=== PATIENT | male | born 1955 | race Caucasian/White ===

== ENCOUNTER 2017-07-28 22:55 | Observation (INO) | payer OTHER ==
[~2017-07-28] VITALS: Ht 170.2 cm; Wt 70.0 kg
[~2017-07-28 22:55] MED LIST: ASPI81 PO; CARV3.125 PO; PRAV10 PO; TEMA30CA PO; TICA90 PO
[2017-07-28 23:01] VITALS: BP 142/80; PULSE 88; RESP 16; TEMP 97.4; O2SAT 98
[2017-07-28] MEDS ORDERED: TEMA30CA PO (23:11)
[2017-07-28] MEDS ORDERED: NUGENIX PO (23:11)
[2017-07-28] MEDS ORDERED: PRAV40TA2 PO (23:11)
[2017-07-28] MEDS ORDERED: CLOP75TA PO (23:11)
[2017-07-28] MEDS ORDERED: AMBI10TA PO (23:11)
[2017-07-28] MEDS ORDERED: OMEG100046 PO (23:11)
[2017-07-28] MEDS ORDERED: ASPI1CHW4 CHEW (23:11)
[2017-07-28] MEDS ORDERED: CARV3.12 PO (23:11)
--- NOTE | 2017-07-28 23:53 | PD ---
HPI Chief Complaint: Dizziness Time Seen by Provider: 23:34 Travel History International Travel<30 days: No Contact w/Intl Traveler<30days: No Traveled to known affect area: No History of Present Illness HPI 62yo M with PMH of CAD s/p cardiac stent, HLD presents to the ED with c/o episode of dizziness, slurred speech, difficulty with his right arm and double vision at 10:30pm that lasted 10-15 minutes. As per his daughter, pt was sitting down watching TV when he said he saw 2 people on the TV but there was only 1 person. Daughter said his speech was slurred and not normal. He was eating gelato with his right hand and was having difficulty with the scooping motion. Pt said he no longer has double vision or feel dizzy. Pt cannot tell me if he had double vision with one eye closed since he did not try it and that symptom has resolved. Denies any history of stroke before. Denies any fever, chest pain, sob, n/v, abdominal pain, focal weakness or numbness. PFSH Past Medical History Asthma: No Autoimmune Disease: No Blood Disorders: No Anxiety: No Depression: No Heart Rhythm Problems: No Cancer: No Cardiovascular Problems: Yes (high cholesterol/triglycerides) High Cholesterol: Yes Chest Pain: Yes Congestive Heart Failure: No COPD: No Cerebrovascular Accident: No Diabetes: No Diminished Hearing: No Endocrine: No Genitourinary: No Headaches: Yes Hypertension: No Immune Disorder: No Musculoskeletal: No Neurologic: Yes (migraines) Psychiatric: No Reproductive: No Respiratory: Yes (BRONCHITIS) Migraines: Yes Myocardial Infarction: No Seizures: No Sleep Apnea: No Thyroid Disease: No Triglycerides - High: Yes Past Surgical History Abdominal Surgery: No AICD: No Appendectomy: Yes Arteriovenous Shunt: No Body Medical Devices: STENT Cardiac Surgery: Yes (STENT - 2007) Coronary Stent: Yes (X 1 IN 2007) Ear Surgery: No Endocrine Surgery: No Eye Surgery: No Genitourinary Surgery: Yes (GALLBLADDER) Gynecologic Surgery: No Insulin Pump: No Joint Replacement: No Oral Surgery: No Pacemaker: No Thoracic Surgery: No Other Surgery: Yes (appendectomy) Social History Alcohol Use: Yes (ON RARE OCCASION) Tobacco Use: No Substance Use: No Allergies-Medications (Allergen,Severity, Reaction): Coded Allergies: No Known Allergies (Verified Adverse Reaction, Unknown, 07/28/17) Reported Meds & Prescriptions Reported Meds & Active Scripts Active Reported Clopidogrel (Clopidogrel Bisulfate) 75 Mg Tab 75 Mg PO DAILY [Nugenix] 3 Cap PO DAILY Fish Oil 1,000 mg Softgel ([place]-3/Dha/Epa/Fish Oil) 1,000 Mg (120 Mg-180 Mg) Capsule 1 Cap PO DAILY Pravastatin 40 Mg Tab 40 Mg PO HS Ambien (Zolpidem Tartrate) 10 Mg Tab 10 Mg PO HS PRN Carvedilol 3.125 Mg Tab 3.125 Mg PO BID Temazepam 30 Mg Cap 30 Mg PO HS PRN Aspirin 81 Low Dose (Aspirin) 81 Mg Chew 81 Mg CHEW DAILY Review of Systems Except as stated in HPI: all other systems reviewed are Neg Physical Exam Narrative GENERAL: 62yo M not in distress. SKIN: Focused skin assessment warm/dry. HEAD: Atraumatic. Normocephalic. EYES: Pupils equal and round at 4mm bilaterally. EOMI. No scleral icterus. No injection or drainage. ENT: No nasal bleeding or discharge. Mucous membranes pink and moist. NECK: Trachea midline. No JVD. CARDIOVASCULAR: Regular rate and rhythm. No murmur appreciated. RESPIRATORY: No accessory muscle use. Clear to auscultation. Breath sounds equal bilaterally. GASTROINTESTINAL: Abdomen soft, non-tender, nondistended. MUSCULOSKELETAL: No obvious deformities. No clubbing. No cyanosis. No edema. NEUROLOGICAL: Awake and alert. No obvious cranial nerve deficits. Motor grossly within normal limits in all extremities. Sensation equal in all extremities. Normal speech. NIH stroke 0. PSYCHIATRIC: Appropriate mood and affect; insight and judgment normal. Data Data Last Documented VS Vital Signs Date Time Temp Pulse Resp B/P (MAP) Pulse Ox O2 Delivery O2 Flow Rate FiO2 07/28/17 23:47 Room Air 07/28/17 23:01 97.4 88 16 142/80 (100) 98 Orders Orders Electrocardiogram (07/28/17 23:48) Basic Metabolic Panel (Bmp) (07/28/17 23:48) Complete Blood Count With Diff (07/28/17 23:48) Magnesium (Mg) (07/28/17 23:48) Troponin I (07/28/17 23:48) Blood Glucose (07/28/17 23:48) Orthostatic Vital Signs (07/28/17 23:48) Urinalysis - C+S If Indicated (07/28/17 23:53) Ct Brain W/O Iv Contrast(Rout) (07/29/17 ) Prothrombin Time / Inr (Pt) (07/29/17 00:09) Act Partial Throm Time (Ptt) (07/29/17 00:09) Labs Laboratory Tests Test 07/29/17 00:18 White Blood Count 7.9 TH/MM3 Red Blood Count 5.66 MIL/MM3 Hemoglobin 16.8 GM/DL Hematocrit 49.7 % Mean Corpuscular Volume 87.9 FL Mean Corpuscular Hemoglobin 29.7 PG Mean Corpuscular Hemoglobin Concent 33.8 % Red Cell Distribution Width 13.2 % Platelet Count 248 TH/MM3 Mean Platelet Volume 8.1 FL Neutrophils (%) (Auto) 60.1 % Lymphocytes (%) (Auto) 25.2 % Monocytes (%) (Auto) 10.1 % Eosinophils (%) (Auto) 3.7 % Basophils (%) (Auto) 0.9 % Neutrophils # (Auto) 4.7 TH/MM3 Lymphocytes # (Auto) 2.0 TH/MM3 Monocytes # (Auto) 0.8 TH/MM3 Eosinophils # (Auto) 0.3 TH/MM3 Basophils # (Auto) 0.1 TH/MM3 CBC Comment DIFF FINAL Differential Comment Prothrombin Time 10.1 SEC Prothromb Time International Ratio 1.0 RATIO Activated Partial Thromboplast Time 25.4 SEC Urine Color YELLOW Urine Turbidity CLEAR Urine pH 6.0 Urine Specific [place] GREATER/EQUAL 1.030 Urine Protein NEG mg/dL Urine Glucose (UA) NEG mg/dL Urine Ketones NEG mg/dL Urine Occult Blood NEG Urine Nitrite NEG Urine Bilirubin NEG Urine Urobilinogen 0.2 MG/DL Urine Leukocyte Esterase NEG Urine RBC 0-2 /hpf Urine WBC 0-2 /hpf Urine Squamous Epithelial Cells 0-5 /hpf Urine Bacteria NONE /hpf Microscopic Urinalysis Comment CULT NOT INDICATED Blood Urea Nitrogen 20 MG/DL Creatinine 1.00 MG/DL Random Glucose 80 MG/DL Calcium Level 9.0 MG/DL Magnesium Level 2.6 MG/DL Sodium Level 143 MEQ/L Potassium Level 3.8 MEQ/L Chloride Level 109 MEQ/L Carbon Dioxide Level 29.7 MEQ/L Anion Gap 4 MEQ/L Estimat Glomerular Filtration Rate 76 ML/MIN Troponin I LESS THAN 0.02 NG/ML MDM Medical Decision Making Medical Screen Exam Complete: Yes Emergency Medical Condition: Yes Interpretation(s) EKG: Sinus bradycardia at 57bpm. Normal axis. No ST segment elevation or depression. Differential Diagnosis TIA vs. Arrhythmia vs. dehydration vs. hypoglycemia vs. vertigo Narrative Course 62yo M with CAD here with episode of slurred speech, double vision and ? weakness in right arm that has resolved. Pt's speech is normal as per daughter. NIH stroke 0 here. Labs reviewed, no leukocytosis. H/H normal. BUN mildly elevated at 20. Troponin negative. UA negative. CT brain negative. Pt already took aspirin today. Pt had symptoms concerning for TIA so will admit for observation for TIA work up. Discussed with Dr. Srinivasan's PA and accepted to her service. Diagnosis Primary Impression: TIA (transient ischemic attack) Qualified Codes: G45.9 - Transient cerebral ischemic attack, unspecified Admitting Information Admitting Physician Requests: Observation Anitha Shepard DO Jul 28, 2017 23:53
[2017-07-29] VITALS (8 sets, daily range): BP systolic 126–154; BP diastolic 70–86; PULSE 50–67; RESP 15–19; TEMP 95–97.8; O2SAT 95–97
[2017-07-29 00:31] LABS: BILIRUBIN, URINE NEG (NEG); BLOOD, URINE NEG (NEG); GLUCOSE,URINE NEG (NEG); KETONE, URINE NEG (NEG); NITRITE,URINE NEG (NEG); URINE COLOR YELLOW (YELLW/STRAW); URINE LEUKOCYTE ESTERASE NEG (NEG)
[2017-07-29 00:34] LABS: AUTOMATED NEUTROPHIL # 4.7 TH/MM3 (1.8-7.7); BASOPHIL # 0.1 TH/MM3 (0-0.2); BASOPHIL % 0.9 % (0.0-2.0); EOSINOPHIL # 0.3 TH/MM3 (0-0.4); EOSINOPHIL % 3.7 % (0.0-4.0); HEMATOCRIT 49.7 % (39.0-51.0); HEMOGLOBIN 16.8 GM/DL (13.0-17.0); LYMPH % 25.2 % (9.0-44.0); MEAN CELL VOLUME 87.9 FL (80.0-100.0); MEAN CORPUSCULAR HEMOGLOBIN 29.7 PG (27.0-34.0); MEAN CORPUSCULAR HGB CONC 33.8 % (32.0-36.0); MEAN PLATELET VOLUME 8.1 FL (7.0-11.0); MONO % 10.1 % (0.0-8.0); MONOCYTE # 0.8 TH/MM3 (0-0.9); NEUT % 60.1 % (16.0-70.0); PLATELET COUNT 248 TH/MM3 (150-450); RED BLOOD COUNT 5.66 MIL/MM3 (4.50-5.90); RED CELL DISTRIBUTION WIDTH 13.2 % (11.6-17.2); WHITE BLOOD COUNT 7.9 TH/MM3 (4.0-11.0)
[2017-07-29 00:40] LABS: CHLORIDE 109 MEQ/L (98-107); SODIUM (NA) 143 MEQ/L (136-145)
[2017-07-29 00:42] LABS: RBC, URINE 0-2 /hpf (0-3); SQUAMOUS EPITHELIAL CELL URINE 0-5 /hpf (0-5); WBC, URINE 0-2 /hpf (0-5)
--- NOTE | 2017-07-29 00:42 | RADRPT ---
EXAM DATE/TIME: 07/29/2017 00:16 [facility] COMPARISON: No previous studies available for comparison. INDICATIONS : Dizziness. Double vision. RADIATION DOSE: 51.34 CTDIvol (mGy) MEDICAL HISTORY : Cardiovascular disease. SURGICAL HISTORY : None. ENCOUNTER: Initial ACUITY: 1 day PAIN SCALE: 0/10 LOCATION: cranial TECHNIQUE: Multiple contiguous axial images were obtained of the head. Using automated exposure control and adj ustment of the mA and/or kV according to patient size, radiation dose was kept as low as reasonably a chievable to obtain optimal diagnostic quality images. DICOM format image data is available electro nically for review and comparison. FINDINGS: CEREBRUM: The ventricles are normal for age. No evidence of midline shift, mass lesion, hemorrhage or acute in farction. No extra-axial fluid collections are seen. POSTERIOR FOSSA: The cerebellum and brainstem are intact. The 4th ventricle is midline. The cerebellopontine angle i s unremarkable. EXTRACRANIAL: The visualized portion of the orbits is intact. SKULL: The calvaria is intact. No evidence of skull fracture. CONCLUSION: 1. Negative noncontrast CT brain. Jarrod Frances MD on July 29, 2017 at 0:40 Board Certified Radiologist. This report was verified electronically.
[2017-07-29 00:43] LABS: BICARBONATE 29.7 MEQ/L (21.0-32.0)
[2017-07-29 00:44] LABS: BLOOD UREA NITROGEN 20 MG/DL (7-18); GLUCOSE,RANDOM 80 MG/DL (74-106); MAGNESIUM 2.6 MG/DL (1.5-2.5); PROTHROMBIN TIME - PATIENT 10.1 SEC (9.8-11.6)
[2017-07-29 00:47] LABS: GLOMERULAR FILTRATION RATE 76 ML/MIN (>89)
[2017-07-29 00:52] LABS: TROPONIN I LESS THAN 0.02 NG/ML (0.02-0.05)
[2017-07-29] MEDS ORDERED: SODIUM CHLORIDE 0.9% FLUSH 10 ML FLUSH IV FLUSH PRN (01:15)
[2017-07-29] MEDS: SODIUM CHLOR 0.9% 1000 ML INJ 1,000 ML IV SCH ×2 (01:27→15:25)
[2017-07-29] MEDS: SODIUM CHLORIDE 0.9% FLUSH 10 ML FLUSH IV FLUSH SCH ×2 (08:44→20:50)
--- NOTE | 2017-07-29 08:52 | RADRPT ---
EXAM DATE/TIME: 07/29/2017 08:04 [facility] COMPARISON: No previous studies available for comparison. INDICATIONS : Transient ischemic attack. MEDICAL HISTORY : Myocardial infarction. Hypercholesterolemia. Hypertension. Hyperlipidemia. Chest pain. Bronchitis. Ar thritis. SURGICAL HISTORY : Appendectomy. Cholecystectomy. Cardiac stents. ENCOUNTER: Initial ACUITY: 1 day PAIN SCORE: 0/10 LOCATION: Bilateral neck PEAK SYSTOLIC VELOCITIES (cm/sec): ICA/CCA RATIO: Right: 1.0 Left: 0.8 ICA: Right: 1.9 Left: 83 CCA: Right: 110 Left: 98 ECA: Right: 78 Left: 95 VERTEBRAL: Right: 51 antegrade Left: 43 antegrade Elevated flow velocities and ICA/CCA ratios have been found to correlate with increased degrees of vessel stenosis, calculated as percentage of diameter relative to a normal segment of distal ICA/CCA FINDINGS: RIGHT CAROTID: No significant stenosis is visualized. The waveforms are within normal limits. LEFT CAROTID: No significant stenosis is visualized. The waveforms are within normal limits. VERTEBRAL ARTERIES: Antegrade flow is seen in both vertebral arteries. MISCELLANEOUS: None. CONCLUSION: Normal examination with mild atherosclerotic disease present. Reji Yi MD on July 29, 2017 at 8:49 Board Certified Radiologist. This report was verified electronically.
--- NOTE | 2017-07-29 09:28 | HHI.HP ---
[facility] Service [facility] Primary Care Physician Alma Delia Rosado MD Admission Diagnosis TIA Diagnoses: Chief Complaint: Slurred speech Travel History International Travel<30 Days: No Contact w/Intl Traveler <30 Da: No Traveled to Known Affected Are: No History of Present Illness 62-year-old white male being admitted for strokelike symptoms. Patient was in his usual state of health until sometime yesterday around 10:20 PM when he noticed double vision while watching television. He noticed that there were twice as many figures on TV as well as in person, saw 2 figures of his daughter. Around this time frame his daughter noted that he had slurred speech and the patient noted that he had trouble scooping out ice cream with his right arm. Patient denies recalling any facial droop, nausea vomiting or headaches. He does remember ambulating with help to their vehicle to come to the emergency department. Patient does note that by the time he got to the emergency department his symptoms went away. In the emergency department he had a head CT performed which was negative. EKG was performed which I independently reviewed which shows no acute ST segment changes concerning for ischemia or infarction nor any atrial fibrillation. Blood work is also unremarkable. Review of Systems Except as stated in HPI: all other systems reviewed are Neg Past Family Social History Past Medical History Social history is negative for smoking or drinking. Family history is unremarkable per patient. medical history includes coronary artery disease. Allergies: Coded Allergies: No Known Allergies (Verified Adverse Reaction, Unknown, 07/28/17) Physical Exam Vital Signs Vital Signs Date Time Temp Pulse Resp B/P (MAP) Pulse Ox O2 Delivery O2 Flow Rate FiO2 07/29/17 08:30 67 07/29/17 08:00 97.8 59 19 139/85 (103) 97 07/29/17 04:00 95.0 59 15 149/86 (107) 97 07/29/17 02:43 07/29/17 01:15 60 16 127/76 (93) 95 Room Air 07/28/17 23:47 Room Air 07/28/17 23:01 97.4 88 16 142/80 (100) 98 Physical Exam VS: afebrile GENERAL: Lying in bed, awake, alert, no acute distress SKIN: Warm and dry. EYES: Pupils equal and round. No scleral icterus. No injection or drainage. ENT: No nasal bleeding or discharge. Mucous membranes pink and moist. CARDIOVASCULAR: Regular rate and rhythm. no murmurs RESPIRATORY: No accessory muscle use. Clear to auscultation. Breath sounds equal bilaterally. GASTROINTESTINAL: Abdomen soft, non-tender, nondistended. Extremities: No clubbing, cyanosis, or edema. No obvious deformities. MUSCULOSKELETAL: grossly intact ROM with 5/5 strength in upper and lower extremities proximally; adequate muscle bulk and tone for age and habitus NEUROLOGICAL: Awake and alert. No obvious cranial nerve deficits. No facial droop nor slurred speech noted. Patellar reflexes intact bilaterally. Intact sensation of light touch and pinprick bilaterally over proximal upper extremities and face. Uvula and tongue maintained in midline. Extraocular motions intact. Intact dorsiflexion and plantar flexion. PSYCHIATRIC: Appropriate mood and affect; insight and judgment normal. Laboratory Laboratory Tests Test 07/29/17 00:18 White Blood Count 7.9 Red Blood Count 5.66 Hemoglobin 16.8 Hematocrit 49.7 Mean Corpuscular Volume 87.9 Mean Corpuscular Hemoglobin 29.7 Mean Corpuscular Hemoglobin Concent 33.8 Red Cell Distribution Width 13.2 Platelet Count 248 Mean Platelet Volume 8.1 Neutrophils (%) (Auto) 60.1 Lymphocytes (%) (Auto) 25.2 Monocytes (%) (Auto) 10.1 Eosinophils (%) (Auto) 3.7 Basophils (%) (Auto) 0.9 Neutrophils # (Auto) 4.7 Lymphocytes # (Auto) 2.0 Monocytes # (Auto) 0.8 Eosinophils # (Auto) 0.3 Basophils # (Auto) 0.1 CBC Comment DIFF FINAL Differential Comment Prothrombin Time 10.1 Prothromb Time International Ratio 1.0 Activated Partial Thromboplast Time 25.4 Urine Color YELLOW Urine Turbidity CLEAR Urine pH 6.0 Urine Specific [place] GREATER/EQUAL 1.030 Urine Protein NEG Urine Glucose (UA) NEG Urine Ketones NEG Urine Occult Blood NEG Urine Nitrite NEG Urine Bilirubin NEG Urine Urobilinogen 0.2 Urine Leukocyte Esterase NEG Urine RBC 0-2 Urine WBC 0-2 Urine Squamous Epithelial Cells 0-5 Urine Bacteria NONE Microscopic Urinalysis Comment CULT NOT INDICATED Blood Urea Nitrogen 20 Creatinine 1.00 Random Glucose 80 Calcium Level 9.0 Magnesium Level 2.6 Sodium Level 143 Potassium Level 3.8 Chloride Level 109 Carbon Dioxide Level 29.7 Anion Gap 4 Estimat Glomerular Filtration Rate 76 Troponin I LESS THAN 0.02 Result Diagram: 07/29/17 0018 07/29/17 0018 Imaging Last Impressions Head CT 07/29/17 0000 Signed Impressions: Service Date/Time: Saturday, July 29, 2017 00:16 - CONCLUSION: 1. Negative noncontrast CT brain. Jarrod Frances MD Carotid Artery Ultrasound 07/29/17 0000 Signed Impressions: Service Date/Time: Saturday, July 29, 2017 08:04 - CONCLUSION: Normal examination with mild atherosclerotic disease present. MD Carter Kirby VTE Risk Assessment Carter VTE Risk Assessment: Mod/High Risk (score >= 2) Caprini Risk Assessment Model Point Value = 1 Point Value = 2 Point Value = 3 Point Value = 5 Age 41-60 Minor surgery BMI > 25 kg/m2 Swollen legs Varicose veins or History of unexplained or recurrent spontaneous Oral contraceptives or hormone replacement Sepsis (< 1 month) Serious lung disease, including pneumonia (< 1 month) Abnormal pulmonary function Acute myocardial infarction Congestive heart failure (< 1 month) History of inflammatory bowel disease Medical patient at bed rest Age 61-74 Arthroscopic surgery Major open surgery (> 45 min) Laparoscopic surgery (> 45 min) Malignancy Confined to bed (> 72 hours) Immobilizing plaster cast Central venous access Age >= 75 History of VTE Family history of VTE Factor V Leiden Prothrombin [id number] Lupus anticoagulant Anticardiolipin antibodies Elevated serum homocysteine Heparin-induced thrombocytopenia Other congenital or acquired thrombophilia Stroke (< 1 month) Elective arthroplasty Hip, pelvis, or leg fracture Acute spinal cord injury (< 1 month) Prophylaxis Regimen Total Risk Factor Score Risk Level Prophylaxis Regimen 0-1 Low Early ambulation 2 Moderate Order ONE of the following: *Sequential Compression Device (SCD) *Heparin 5000 units SQ BID 3-4 Higher Order ONE of the following medications: *Heparin 5000 units SQ TID *Enoxaparin/Lovenox 40 mg SQ daily (WT < 150 kg, CrCl > 30 mL/min) *Enoxaparin/Lovenox 30 mg SQ daily (WT < 150 kg, CrCl > 10-29 mL/min) *Enoxaparin/Lovenox 30 mg SQ BID (WT < 150 kg, CrCl > 30 mL/min) AND/OR *Sequential Compression Device (SCD) 5 or more Highest Order ONE of the following medications: *Heparin 5000 units SQ TID (Preferred with Epidurals) *Enoxaparin/Lovenox 40 mg SQ daily (WT < 150 kg, CrCl > 30 mL/min) *Enoxaparin/Lovenox 30 mg SQ daily (WT < 150 kg, CrCl > 10-29 mL/min) *Enoxaparin/Lovenox 30 mg SQ BID (WT < 150 kg, CrCl > 30 mL/min) AND *Sequential Compression Device (SCD) Assessment and Plan Assessment and Plan 63-year-old white male being admitted for strokelike symptoms Strokelike symptoms -Suspect TIA due to resolution of symptoms. -PT OT ST -Bedside nursing swallow assessment -Permissive hypertension -Head CT is negative -Carotid ultrasound and echocardiogram and MRI -Continue home aspirin Plavix -Starting Lipitor as opposed to home pravastatin -LDL pending -telemetry Sadi Garcia MD Jul 29, 2017 09:28
[2017-07-29] MEDS ORDERED: NON-FORMULARY DRUG (Omega-3/Dha/Epa/Fish Oil (Fish Oil 1,000 mg Softgel) 1 CAP) PO SCH (09:30)
[2017-07-29] MEDS ORDERED: TEMAZEPAM 15 MG CAP PO PRN (09:30)
[2017-07-29] MEDS: CLOPIDOGREL 75 MG TAB PO SCH (09:51)
[2017-07-29] MEDS: ASPIRIN 81 MG CHEW TAB CHEW SCH (09:51)
[2017-07-29] MEDS ORDERED: ATORVASTATIN 40 MG TAB PO ONE (10:00)
[2017-07-29] MEDS ORDERED: ZOLPIDEM TARTRATE 10 MG TAB PO PRN (10:00)
--- NOTE | 2017-07-29 11:32 | RADRPT ---
EXAM DATE/TIME: 07/29/2017 10:55 [facility] COMPARISON: CT BRAIN W/O CONTRAST, July 29, 2017, 0:16. INDICATIONS : Slurred speech. Diplopia, resolved. MEDICAL HISTORY : Hypertension. SURGICAL HISTORY : Coronary artery stent. Appendectomy. Cholecystectomy. ENCOUNTER: Initial ACUITY: 1 day PAIN SCORE: 0/10 LOCATION: cranial TECHNIQUE: Multiplanar, multisequence MRI of the brain was performed without contrast. FINDINGS: CEREBRUM: The ventricles are normal for age. No evidence of midline shift, mass lesion, hemorrhage or acute in farction. No extraaxial fluid collections are seen. The pituitary gland and suprasellar cistern are normal in configuration. WHITE MATTER: No significant signal abnormalities are seen in the white matter. POSTERIOR FOSSA: The cerebellum and brainstem are intact. The 4th ventricle is midline. The cerebellopontine angle is unremarkable. The cerebellar tonsils are normal in position. DIFFUSION IMAGING: No focal areas of restricted diffusion are seen. No evidence of acute infarction. EXTRACRANIAL: The visualized portions of the orbits and paranasal sinuses are unremarkable. CONCLUSION: Negative exam. Ivan Bergman MD on July 29, 2017 at 11:17 Board Certified Radiologist. This report was verified electronically.
--- NOTE | 2017-07-29 13:54 | EKG ---
Date Performed: 07/28/2017 Time Performed: 23:58:38 PTAGE: 62 years EKG: SINUS BRADYCARDIA MINIMAL VOLTAGE CRITERIA FOR LVH, CONSIDER NORMAL VARIANT BORDERLINE ECG PREVIOUS TRACING : 06/08/2014 05.21 Since the previous tracing, no significant change noted DOCTOR: Misael Sparks Interpretating Date/Time 07/29/2017 13:50:02
[2017-07-29 15:53] LABS: HEMOGLOBIN A1C 5.3 % (4.3-6.0)
--- NOTE | 2017-07-29 18:22 | ECHRPT ---
Indication: CVA/TIA CONCLUSIONS The left ventricular systolic function is normal with an estimated ejection fraction in the range of 55-60%. There is trace tricuspid valve regurgitation. BP: 154 / 79 HR: 50 Rhythm: Sinus MEASUREMENTS (Male / Female) Normal Values Technical Quality:Fair 2D ECHO LV Diastolic Diameter PLAX 4.9 cm 4.2 - 5.9 / 3.9 - 5.3 cm LV Systolic Diameter PLAX 3.0 cm IVS Diastolic Thickness 0.7 cm 0.6 - 1.0 / 0.6 - 0.9 cm LVPW Diastolic Thickness 0.8 cm 0.6 - 1.0 / 0.6 - 0.9 cm LV Relative Wall Thickness 0.3 RV Internal Dim ED PLAX 2.7 cm LVOT Diameter 2.2 cm Aortic Root Diameter 3.2 cm LA Systolic Diameter LX 3.1 cm 3.0 - 4.0 / 2.7 - 3.8 cm M-MODE AV Cusp Separation MM 2.2 cm DOPPLER AV Peak Velocity 114.0 cm/s AV Peak Gradient 5.2 mmHg AV Mean Gradient 3.0 mmHg AV Velocity Time Integral 24.8 cm LVOT Peak Velocity 102.0 cm/s LVOT Peak Gradient 4.2 mmHg LVOT Velocity Time Integral 21.9 cm AV Area Cont Eq vti 3.4 cm AV Area Cont Eq pk 3.4 cm Mitral E Point Velocity 97.2 cm/s Mitral A Point Velocity 104.0 cm/s Mitral E to A Ratio 0.9 LV E' Lateral Velocity 10.3 cm/s Mitral E to LV E' Lateral Ratio 9.4 LV E' Septal Velocity 5.2 cm/s Mitral E to LV E' Septal Ratio 18.8 TR Peak Velocity 308.0 cm/s TR Peak Gradient 37.9 mmHg Right Atrial Pressure 10.0 mmHg Pulmonary Artery Systolic Pressu 47.9 mmHg Right Ventricular Systolic Press 47.9 mmHg PV Peak Velocity 45.1 cm/s PV Peak Gradient 0.8 mmHg FINDINGS LEFT VENTRICLE Normal left ventricular size. Wall thickness is normal. The left ventricular systolic function is normal with an estimated ejection fraction in the range of 55-60%. RIGHT VENTRICLE Normal right ventricular size and systolic function. LEFT ATRIUM The left atrial size is normal. RIGHT ATRIUM The right atrial size is normal. ATRIAL SEPTUM The interatrial septum not well visualized. AORTA The aortic root and proximal ascending aorta are not well visualized. MITRAL VALVE Structurally normal mitral valve. No mitral valve stenosis. No mitral valve regurgitation. AORTIC VALVE Aortic valve sclerosis is present. No aortic valve regurgitation. No aortic valve stenosis. TRICUSPID VALVE Structurally normal tricuspid valve. No tricuspid valve stenosis. There is trace tricuspid valve regurgitation. PULMONARY VALVE No pulmonary valve regurgitation or stenosis. VESSELS The inferior vena cava was not well visualized. PERICARDIUM There is no pericardial effusion. Fadi Guzmán DO (Electronically Signed) Final Date:29 July 2017 18:20
[2017-07-29] MEDS ORDERED: ENOXAPARIN SODIUM 30 MG/0.3 ML SYRINGE SQ SCH (21:00)
[2017-07-30] VITALS: BP 119/70; PULSE 91; RESP 17; TEMP 98.2; O2SAT 95
[2017-07-30 04:00] VITALS: BP 118/65; PULSE 55; RESP 15; TEMP 97.4; O2SAT 96
[2017-07-30] MEDS: SODIUM CHLOR 0.9% 1000 ML INJ 1,000 ML IV SCH (05:40)
[2017-07-30 08:00] VITALS: BP 146/83; PULSE 53; PULSE 60; RESP 20; TEMP 97.4; O2SAT 97
[2017-07-30] MEDS: ASPIRIN 81 MG CHEW TAB CHEW SCH (08:26)
[2017-07-30] MEDS: CLOPIDOGREL 75 MG TAB PO SCH (08:26)
[2017-07-30] MEDS: SODIUM CHLORIDE 0.9% FLUSH 10 ML FLUSH IV FLUSH SCH (08:29)
[2017-07-30] MEDS ORDERED: ASPI1CHW4 CHEW (09:45)
--- NOTE | 2017-07-30 09:47 | HHI.DS ---
Discharge Summary Admission Date Jul 29, 2017 at 01:13 Discharge Date: Jul 30, 2017 Admitting Diagnosis TIA (1) TIA (transient ischemic attack) ICD Code: G45.9 - Transient cerebral ischemic attack, unspecified Status: Acute Procedures None Brief History - From Admission 62-year-old white male being admitted for strokelike symptoms. Patient was in his usual state of health until sometime yesterday around 10:20 PM when he noticed double vision while watching television. He noticed that there were twice as many figures on TV as well as in person, saw 2 figures of his daughter. Around this time frame his daughter noted that he had slurred speech and the patient noted that he had trouble scooping out ice cream with his right arm. Patient denies recalling any facial droop, nausea vomiting or headaches. He does remember ambulating with help to their vehicle to come to the emergency department. Patient does note that by the time he got to the emergency department his symptoms went away. In the emergency department he had a head CT performed which was negative. EKG was performed which I independently reviewed which shows no acute ST segment changes concerning for ischemia or infarction nor any atrial fibrillation. Blood work is also unremarkable. CBC/BMP: 07/29/17 0018 07/29/17 0018 Significant Findings Laboratory Tests Test 07/29/17 00:18 07/30/17 06:05 Monocytes (%) (Auto) 10.1 % (0.0-8.0) Blood Urea Nitrogen 20 MG/DL (7-18) Magnesium Level 2.6 MG/DL (1.5-2.5) Chloride Level 109 MEQ/L (98-107) Anion Gap 4 MEQ/L (5-15) Estimat Glomerular Filtration Rate 76 ML/MIN (>89) Troponin I LESS THAN 0.02 NG/ML Hospital Course Mr. Patrick is a 62-year-old male. He was admitted secondary to TIA symptoms which included double vision, slurred speech, and right hand weakness. Symptoms were temporary. Imaging of the brain with MRI and carotids with carotid ultrasound shows no abnormality. Patient has been back to his regular baseline at this point for greater than 24 hours. No recurrence of symptoms. Negative workup. Medically stable and cleared for discharge to home. He will continue on Plavix. Aspirin has been increased to 162 mg daily. Medically cleared for discharge home today. Pt Condition on Discharge: Stable Discharge Disposition: Discharge Home Discharge Time: <= 30 minutes Discharge Instructions DIET: Follow Instructions for: As Tolerated, No Restrictions Activities you can perform: Regular-No Restrictions Follow up Referrals: PCP Follow-up - 2 Weeks Changed Medications: Aspirin (Aspirin 81 Low Dose) 81 Mg Chew 81 MG CHEW BID for Blood Clot Prevention, #60 TAB (Changed from: DAILY; 30) Continued Medications: Carvedilol (Carvedilol) 3.125 Mg Tab 3.125 MG PO BID, #60 TAB 0 Refills Clopidogrel (Clopidogrel) 75 Mg Tab 75 MG PO DAILY for Blood Clot Prevention, #30 TAB 0 Refills Bradford-3/Dha/Epa/Fish Oil (Fish Oil 1,000 mg Softgel) 1,000 Mg (120 Mg-180 Mg) Capsule 1 CAP PO DAILY Pravastatin (Pravastatin) 40 Mg Tab 40 MG PO HS for Cholesterol Management, #30 TAB 0 Refills Temazepam (Temazepam) 30 Mg Cap 30 MG PO HS PRN for INSOMNIA, #30 CAP 0 Refills Zolpidem (Ambien) 10 Mg Tab 10 MG PO HS PRN for INSOMNIA, TAB 0 Refills [Nugenix] () 3 CAP PO DAILY Paul Breaux MD Jul 30, 2017 09:47
[2017-07-30 10:56] LABS: CHOLESTEROL/ HDL RATIO 2.82 RATIO; HDL CHOLESTEROL 38.6 MG/DL (40.0-60.0)
[2017-07-30] MEDS ORDERED: ATORVASTATIN 40 MG TAB PO SCH (21:00)
== END 2017-07-30 11:39 | disposition home or self-care (01) ==
LOC: PHED 22:55 → PHEDA 07-29 01:13 → PH3B 07-29 02:40
PROVIDERS: ADMIT Hospitalist; ATTEND Hospitalist
DX: G45.9 Transient cerebral ischemic attack, unspecified (principal); I25.10 Atherosclerotic heart disease of native coronary artery without angina pectoris; I10 Essential (primary) hypertension; E78.00 Pure hypercholesterolemia, unspecified; R00.1 Bradycardia, unspecified; Z95.5 Presence of coronary angioplasty implant and graft; Z79.899 Other long term (current) drug therapy; Z79.82 Long term (current) use of aspirin
CPT/HCPCS: 70450; 70551; 80048; 80061; 81001; 82948; 83036; 83735; 84484; 85025; 85610; 85730; 93005; 93306; 93880; 96125; 96360; 96361; 96372; 97161; 97165; 99285; G0378; G8987; G8988; G8989; J1650; J7030